=== PATIENT | female | born 1950 | race Caucasian/White ===

== ENCOUNTER → 2017-01-21 | Day surgery (SDC) | payer OTHER ==
[~2017-01-21] MED LIST: AMARYL2 MG PO; CIPRO PO; COMPAZINE5 MG; DARVOCET-N 1001 TAB PO; HUMIRA20 MG/0.1; IRON325 ( 651 PO; LASIX20 MG; LASIX20 MG PO; LIPITOR40 MG PO; METFORMIN PO; NAPROSYN500 MG PO; NAPROXEN PO; OXYCODON-ACETA1 EAC1 PO; PANTOPRAZOLE SO40 MG PO; PERSANTINE; REGLAN10 MG PO; SYNTHROID PO; TYLENOL #3 PO; VOLTAREN75 MG PO; ZESTORETIC 10/11 TAB PO; ZOFRAN PO; ZYLOPRIM100 MG PO
--- NOTE | ~2017-01-21 | OR ---
Unit #: [id number] #: [id number] Patient: TAVIA HURTADO [id number] [address] [place], [place] [address] [id number] O MR#: [id number] NAME: TAVIA HURTADO ROOM: Date of Procedure: 01/21/2017 Admission Date: 01/21/2017 Surgeon: Arnol Robertson M.D. : 1950 Attending Physician: Arnol Robertson M.D. Primary Care Physician: Delfina Perkins A.P.R.N. OPERATIVE REPORT PREOPERATIVE DIAGNOSES The patient has presented with history of dysphagia. In addition, she has epigastric pain and dyspepsia. PROCEDURES PERFORMED Upper gastrointestinal endoscopy. POSTOPERATIVE DIAGNOSES The patient had moderate amount of solid food residue in the stomach and duodenum indicating gastroparesis. There was no distal esophageal stricture. RECOMMENDATIONS 1. Reglan 10 mg p.o. t.i.d. half an hour before eating meals. 2. Small frequent low residue meals. 3. The patient must have couple of hours between dinner time and nap time in the evening. 4. Follow up in the office in 3 months' time. SEDATION USED MAC. DESCRIPTION OF PROCEDURE Following detailed explanation of the potential risks and complications of upper endoscopy, namely perforation, bleeding, and complications related to sedation, the patient was brought to GI lab and laid in the left lateral decubitus position. Lubricated tip of the Olympus video upper endoscope was passed through bite block into the proximal esophagus under direct vision. The entire esophageal mucosa was examined and appeared normal. Z-line was nicely demarcated, there being no esophagitis or hiatus hernia. The scope was then advanced into the gastric cavity and the latter was insufflated. Mucosa of the fundus, body, and antrum was examined. The patient was noted to have moderate amount of solid food residue in the stomach. The pylorus was intubated with visualization of the normal duodenal bulb. The patient also has some food residue in the duodenal bulb. Second and third part of duodenum were normal. Upon withdrawal and retroflexion, incisura, cardia, and greater curve examined and no additional findings noted. The scope was then withdrawn in the distal esophagus. The entire esophageal mucosa was examined all the way up to pharynx, no additional findings noted. The patient tolerated the procedure without any postprocedure complications. Unit #: [id number] #: [id number] Patient: TAVIA HURTADO Dictated by..Court Mackey/trinh TD: 01/21/2017 18:00 JOB #: [id number] OPERATIVE REPORT Page 1 of 1 X Arnol Robertson MD PROCEDURE OPERATIVE NOTE
== END | disposition home or self-care (01) ==
LOC: COPS 05:58
DX: E11.43 Type 2 diabetes mellitus with diabetic autonomic (poly)neuropathy (principal); K31.84 Gastroparesis; E03.9 Hypothyroidism, unspecified; K21.9 Gastro-esophageal reflux disease without esophagitis; Z88.2 Allergy status to sulfonamides; Z87.01 Personal history of pneumonia (recurrent); Z79.899 Other long term (current) drug therapy; Z90.49 Acquired absence of other specified parts of digestive tract; Z96.653 Presence of artificial knee joint, bilateral; Z98.890 Other specified postprocedural states
CPT/HCPCS: 82947; J2250